=== PATIENT | male | born 1950 | race Caucasian/White ===

== ENCOUNTER 2017-11-17 10:25 | Outpatient (CLI) | payer OTHER ==
--- NOTE | 2017-11-17 12:56 | XRAY Report ---
3-VIEW LUMBAR SPINE: 11/17/2017 CLINICAL INDICATION: Back pain. FINDINGS: AP, lateral, cone-down views of the lumbar spine demonstrate no evidence of fracture or subluxation. The disk spaces are preserved. Mild facet arthropathy is present. The bowel gas pattern is normal. IMPRESSION: MILD FACET ARTHROPATHY. NO EVIDENCE OF FRACTURE. TD: 11/17/2017 12:55
== END 2017-11-17 10:26 | disposition home or self-care (01) ==
LOC: DI.S 10:25
PROVIDERS: ATTEND Nurse Practitioner Family
DX: M12.88 Other specific arthropathies, not elsewhere classified, other specified site (principal)
CPT/HCPCS: 72100

== ENCOUNTER 2021-06-03 19:45 | Emergency (ER) | payer MEDICARE, OTHER ==
[2021-06-03 19:54] VITALS: BP 163/76
--- NOTE | 2021-06-03 20:49 | ED Physician Documentation ---
PD HPI UPPER EXT INJURY - Stated complaint Stated Complaint: RT FINGER INJ - Chief complaint Chief Complaint: Ext Problem - History obtained from History obtained from: Patient - History of Present Illness Location: Right, Finger Type of injury: Blunt / blow, Crush Where injury occurred: Home Timing - onset: Enter time (15:00), Today Pain level now: 4 Worsened by: Moving, Palpating Associated symptoms: Swelling, Discolored Recently seen: Not recently seen - Additonal information Additional information: patient is left hand dominant. At approximately 3 PM today he was using a hammer to hang [place] lights when he struck right middle finger with the hammer. C/O pain and swelling limited to the tip of his right middle finger. Has taken ibuprofen with adequate analgesia Review of Systems Musculoskeletal: reports: Extremity pain, Extremity swelling Neurologic: denies: Focal weakness, Numbness PD PAST MEDICAL HISTORY - Past Medical History Past Medical History: Yes Cardiovascular: Hypertension, High cholesterol - Present Medications Home Medications: Ambulatory Orders Medication Instructions Recorded Confirmed Nortriptyline [Pamelor] 10 mg PO DAILY 06/03/21 06/03/21 Pravastatin [Pravachol] 10 mg PO DAILY 06/03/21 06/03/21 lisinopriL [Zestril] 5 mg PO DAILY 06/03/21 06/03/21 - Allergies Allergies/Adverse Reactions: Allergies Allergy/AdvReac Type Severity Reaction Status Date / Time hydromorphone [From Dilaudid] Allergy Anxiety Verified 06/03/21 19:50 prochlorperazine Allergy Itching Verified 06/03/21 19:50 [From Compazine] PD ED PE NORMAL - Vitals Vital signs reviewed: Yes - General General: Alert and oriented X 3, No acute distress, Well developed/nourished - Neuro Neuro: No motor deficit, No sensory deficit PD ED PE EXPANDED - Extremities Extremities: Tenderness, Swelling, Bruising, Other (swelling, echymosis, tenderness palmar surface of right third finger distal to DIP joint. no injury to nail, no subungual hematoma) JULIO UE/Hands Visual: 1 - bruising, swelling Results - Vitals Vitals: Vital Signs - 24 hr 06/03/21 19:52 Temperature 36.7 C Heart Rate 84 Respiratory 18 Rate Blood Pressure 163/76 H O2 Saturation 99 Oxygen O2 Source Room air - Rads (name of study) right middle finger xrays Radiology: Prelim report reviewed, See rad report PD MEDICAL DECISION MAKING - ED course Complexity details: reviewed results, re-evaluated patient, considered differential, d/w patient ED course: presents with pain and swelling of right middle finger after crush injury earlier tonight. Xrays do not demonstrate definite fracture, although significant DJD noted and could obscure fracture. Finger splint placed and resu lts d/w patient, instructed to follow up with his primary care provider for reevaluation within 1 week unless symptoms resolve prior to follow up. He declines pain medication, as he has had adequate relief with ibuprofen [employer]. Departure - Departure Disposition: 01 Home, Self Care Clinical Impression: Crushed finger Qualifiers: Encounter type: initial encounter Qualified Code(s): S67.10XA - Crushing injury of unspecified finger(s), initial encounter Condition: Good Instructions: ED Crush Injury Finger No Fx Follow-Up: PHIL NGUYEN MD [Primary Care Provider] - Nitesh Ayala MD [Provider Admit Priv/Credential] - Comments: Follow up with your primary care provider within 1 week. Keep the splint on until advised otherwise. There is no evidence of a fracture on your xray, but as we discussed, there are significant degenerative changes of the joints and this can sometimes obscure a broken bone. The safe and appropriate approach is to keep the splint on until advised otherwise and follow up with your doctor for a reevaluation and possibly repeat xrays. Discharge Date/Time: 06/03/21 21:21
--- NOTE | 2021-06-03 21:16 | XRAY Report ---
PROCEDURE: Finger(s) RT INDICATIONS: Trauma TECHNIQUE: AP hand, 2 views of the third finger(s) acquired. COMPARISON: None. FINDINGS: Bones: No definite fractures or dislocations. The phalangeal joint space narrowing and osteonecrosi s most pronounced in the DIP joints. No suspicious bony lesions. Soft tissues: No suspicious soft tissue calcifications. IMPRESSION: No definite fracture. Inserted follow-up radiographs in 10-14 days. 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 Reviewed by: Nitin Ferreira MD on 06/03/2021 9:14 PM PST Approved by: Nitin Ferreira MD on 06/03/2021 9:14 PM PST Station ID: [id number]
== END 2021-06-03 21:21 | disposition home or self-care (01) ==
LOC: ED 19:45
DX: S67.10XA Crushing injury of unspecified finger(s), initial encounter (principal); W22.8XXA Striking against or struck by other objects, initial encounter; Y93.89 Activity, other specified; Y92.009 Unspecified place in unspecified non-institutional (private) residence as the place of occurrence of the external cause; I10 Essential (primary) hypertension
CPT/HCPCS: 99282; 99283

== ENCOUNTER 2021-10-28 08:00 | Outpatient (CLI) | payer MEDICARE, OTHER ==
--- NOTE | 2021-10-28 21:23 | Ultrasound Report ---
PROCEDURE: Duplex Ext Veins Left INDICATIONS: PAIN IN LEFT LOWER LEG TECHNIQUE: Real-time imaging, as well as color and pulse Doppler interrogation, were performed of the lower extr emity deep veins from the inguinal ligament to the popliteal fossa. COMPARISON: None. FINDINGS: The deep veins are normally compressible, and free of intraluminal thrombus. Color and pu lse Doppler demonstrate normal phasic intraluminal flow. There is normal augmentation response to di stal compression maneuver. IMPRESSION: No left lower extremity DVT. Reviewed by: Nitin Ferreira MD on 10/28/2021 9:22 PM PDT Approved by: Nitin Ferreira MD on 10/28/2021 9:22 PM PDT Station ID: [id number]
== END 2021-10-28 23:59 | disposition home or self-care (01) ==
LOC: DI 08:00
PROVIDERS: ATTEND Physician Assistant Medical
DX: M79.662 Pain in left lower leg (principal)

== ENCOUNTER 2022-07-24 19:54 | Emergency (ER) | payer MEDICARE, OTHER ==
--- NOTE | 2022-07-24 20:01 | ED Physician Documentation ---
PD HPI CHEST PAIN - Stated complaint Stated Complaint: CHEST/BACK PX, HIGH BP - History obtained from History obtained from: Patient - History of Present Illness Timing - onset: How many days ago (2) Timing - onset during: Light activity (he was doing some yardwork and shoveling, and also was leaning into shovel against his chest at times. Did not feel abrupt pain at time, but noted dull achy pain left parasternal later in evening and has continued now for 2 days.) Timing - duration: Days (2) Timing - details: Gradual onset, Still present Quality: Aching, Dull, Pain Location: Left chest (left sternal border and laterally to pectoral area above nipple line.). No: Left shoulder/arm, Left neck Radiation: No: Neck, Back, Abdominal Improved by: Rest Worsened by: Inspiration, Movement, Palpation. No: Eating Associated symptoms: Palpitations (but has had palpitations chronically.). No: Shortness of air, Nausea, Feeling faint / dizzy, Cough Similar symptoms before: Has not had sx before Recently seen: Not recently seen Review of Systems Constitutional: denies: Fever, Chills Nose: denies: Rhinorrhea / runny nose, Congestion Throat: denies: Sore throat Cardiac: reports: Palpitations. denies: Pedal edema, Calf pain Respiratory: denies: Cough GI: denies: Abdominal Pain, Nausea, Vomiting, Diarrhea Skin: denies: Rash, Lesions Neurologic: denies: Generalized weakness, Near syncope PD PAST MEDICAL HISTORY - Past Medical History Cardiovascular: Hypertension, High cholesterol Respiratory: None Endocrine/Autoimmune: None - Present Medications Home Medications: Ambulatory Orders Medication Instructions Recorded Confirmed Nortriptyline [Pamelor] 10 mg PO DAILY 06/03/21 06/03/21 Pravastatin [Pravachol] 10 mg PO DAILY 06/03/21 06/03/21 lisinopriL [Zestril] 5 mg PO DAILY 06/03/21 06/03/21 - Allergies Allergies/Adverse Reactions: Allergies Allergy/AdvReac Type Severity Reaction Status Date / Time hydromorphone [From Dilaudid] Allergy Anxiety Verified 06/03/21 19:50 prochlorperazine Allergy Itching Verified 06/03/21 19:50 [From Compazine] PD ED PE NORMAL - Vitals Vital signs reviewed: Yes - General General: Alert and oriented X 3, No acute distress, Well developed/nourished - Neck Neck: Supple, no meningeal sign, No adenopathy - Cardiac Cardiac: RRR, No murmur, Other (focal chestwall tenderness left upper parasternal. No rash nor crepitance. ) - Respiratory Respiratory: Clear bilaterally - Abdomen Abdomen: Soft, Non tender - Derm Derm: Normal color, Warm and dry, No rash - Extremities Extremities: No edema, No calf tenderness / cord - Neuro Neuro: Alert and oriented X 3, No motor deficit, Normal speech Results - Vitals Vitals: Vital Signs - 24 hr 07/24/22 07/24/22 07/24/22 20:06 21:05 21:46 Temperature 36.8 C Heart Rate 74 74 68 Respiratory 18 17 19 Rate Blood Pressure 152/92 H 131/103 H 132/98 H O2 Saturation 100 96 96 Oxygen O2 Source Room air - EKG (time done) 20:07 Rate: Rate (enter#) (73) Rhythm: NSR [place]: Normal Intervals: Normal [place] QRS: Normal Ischemia: Normal ST segments. No: ST elevation c/w ischemia, ST depression - Labs Labs: Laboratory Tests 07/24/22 07/24/22 07/24/22 20:18 20:18 20:18 WBC 5.7 RBC 4.53 L Hgb 14.4 Hct 43.1 MCV 95.1 H MCH 31.8 H MCHC 33.4 RDW 13.1 Plt Count 222 MPV 9.7 Neut # (Auto) 3.4 Lymph # (Auto) 1.5 [place] # (Auto) 0.7 Eos # (Auto) 0.1 Baso # (Auto) 0.1 Absolute Nucleated RBC 0.00 Nucleated RBC % 0.0 Sodium 136 Potassium 4.1 Chloride 103 Carbon Dioxide 25 Anion Gap 8.0 BUN 18 Creatinine 0.8 Estimated GFR (MDRD) 96 Glucose 95 Calcium 8.9 Total Bilirubin 0.5 AST 28 ALT 19 Alkaline Phosphatase 50 Troponin I High Sens 7.0 B-Natriuretic Peptide Total Protein 7.1 Albumin 4.1 Globulin 3.0 Albumin/Globulin Ratio 1.4 Lipase 35 07/24/22 20:18 WBC RBC Hgb Hct MCV MCH MCHC RDW Plt Count MPV Neut # (Auto) Lymph # (Auto) [place] # (Auto) Eos # (Auto) Baso # (Auto) Absolute Nucleated RBC Nucleated RBC % Sodium Potassium Chloride Carbon Dioxide Anion Gap BUN Creatinine Estimated GFR (MDRD) Glucose Calcium Total Bilirubin AST ALT Alkaline Phosphatase Troponin I High Sens B-Natriuretic Peptide 31 Total Protein Albumin Globulin Albumin/Globulin Ratio Lipase - Rads (name of study) chest xray Radiology: Prelim report reviewed, EMP read indepedently (no acute cardiopulmonary process. ), See rad report PD Medical Decision Making - ED course Complexity details: reviewed results, re-evaluated patient, considered differential (His symptoms sound more musculoskeletal but that has been shown to not be accurate enough. We will do EKG and chest x-ray and troponin to ensure no signs of more significant process), d/w patient Reviewed Lab Results: EKG shows a normal sinus rhythm without any ischemic changes. This is interpreted by me. Chest x-ray is also interpreted by me as well as the radiologist. I do not see any acute cardiopulmonary process and the radiology report is negative as well. Lab tests of chemistry panel, blood count, troponin and BNP are all in the normal range. This would exclude any acute myocardial muscle damage or any signs of acute heart failure based on the BNP and x-ray. Since there is no sign of more significant cause based on the testing and he does have chest wall tenderness and a mechanism to suggest a costochondral inflammation at the parasternal area, I believe he is safe for discharge and can be treated with NSAIDs and Tylenol. He declined any opioid type medicines. Departure - Departure Disposition: 01 Home, Self Care Clinical Impression: Chest pain Qualifiers: Chest pain type: other chest pain Qualified Code(s): R07.89 - Other chest pain Condition: Stable Record reviewed to determine appropriate education?: Yes Instructions: ED Strain Chest Wall Follow-Up: PHIL NGUYEN MD [Primary Care Provider] - Comments: Your EKG is normal without any signs of strain or injury of the heart. Your chest x-ray is also normal without any signs of pneumonia, collapsed lung, fluid in the lungs or masses. Your blood tests are normal, in particular ones called troponin and BNP, which did note no signs of heart muscle injury nor heart failure. Your pancreas and liver markers on blood tests are also normal. At this point it seems like a inflammation and injury of the chest wall and the cartilage in that area. I would suggest ibuprofen or naproxen 2 [id number] tablets 3 times daily with food for the next several days to week. Add Tylenol every 4-6 hours if needed. I would anticipate improvement over the next 3 to 5 days and resolution by about a week. Recheck if not better in that timeframe or if other symptoms develop. Discharge Date/Time: 07/24/22 21:47
[2022-07-24] MEDS ORDERED: KETOROLAC 15 MG/ML VIAL IVP STA (20:16)
[2022-07-24] MEDS ORDERED: ACETAMINOPHEN 325 MG TABLET PO STA (20:16)
[2022-07-24 20:24] LABS: BASOPHILS # (AUTO) 0.1 10^3/uL (0.0-0.1); BASOPHILS % (AUTO) 1.1 %; EOSINOPHILS # (AUTO) 0.1 10^3/uL (0.0-0.7); EOSINOPHILS % (AUTO) 2.5 %; HCT - HEMATOCRIT 43.1 % (42.0-52.0); HGB - HEMOGLOBIN 14.4 g/dL (14.0-18.0); LYMPHOCYTES # (AUTO) 1.5 10^3/uL (1.5-3.5); LYMPHOCYTES % (AUTO) 25.7 %; MEAN CORPUSCULAR HEMOGLOBIN 31.8 pg (27.0-31.0); MEAN CORPUSCULAR HGB CONC 33.4 g/dL (32.0-36.0); MEAN CORPUSCULAR VOLUME 95.1 fL (80.0-94.0); MEAN PLATELET VOLUME 9.7 fL (7.4-11.4); MONOCYTES # (AUTO) 0.7 10^3/uL (0.0-1.0); MONOCYTES % (AUTO) 11.6 %; NEUTROPHILS # (AUTO) 3.4 10^3/uL (1.5-6.6); NEUTROPHILS % (AUTO) 58.9 %; PLT - PLATELET COUNT 222 10^3/uL (130-450); RED BLOOD COUNT 4.53 10^6/uL (4.70-6.10); RED CELL DISTRIBUTION WIDTH 13.1 % (12.0-15.0); WHITE BLOOD COUNT 5.7 x10^3/uL (4.8-10.8)
[2022-07-24 20:39] LABS: ALBUMIN 4.1 g/dL (3.2-5.5); ALBUMIN/GLOBULIN RATIO 1.4 (1.0-2.2); BILIRUBIN,TOTAL 0.5 mg/dL (0.2-1.0); CALCIUM 8.9 mg/dL (8.5-10.3); CREATININE 0.8 mg/dL (0.6-1.2); POTASSIUM 4.1 mmol/L (3.5-5.0); TOTAL PROTEIN 7.1 g/dL (6.7-8.2)
--- NOTE | 2022-07-24 20:40 | XRAY Report ---
PROCEDURE: Chest 1 View X-Ray INDICATIONS: Chest Pain TECHNIQUE: One view of the chest was acquired. COMPARISON: None. FINDINGS: Surgical changes and devices: None. Lungs and pleura: No pleural effusions or pneumothorax. Lungs are clear. Mediastinum: Mediastinal contours appear normal. Heart size is normal. Bones and chest wall: No suspicious bony lesions. Overlying soft tissues appear unremarkable. IMPRESSION: 1. No acute cardiopulmonary disease. Reviewed by: Jay Jones MD on 07/24/2022 8:38 PM [facility] Approved by: Jay Jones MD on 07/24/2022 8:38 PM [facility] Station ID: [id number]
[2022-07-24 21:47] VITALS: BP 132/98
== END 2022-07-24 21:47 | disposition home or self-care (01) ==
LOC: ED 19:54
DX: R07.89 Other chest pain (principal)
CPT/HCPCS: 36415; 71045; 80053; 83690; 83880; 84484; 85025; 93005; 96374; 99283; 99284; A9270

== ENCOUNTER 2022-09-15 16:25 | Emergency (ER) | payer MEDICARE, OTHER ==
[2022-09-15 16:54] VITALS: BP 135/83
--- NOTE | 2022-09-15 17:21 | ED Physician Documentation ---
History of Present Illness - Stated complaint Stated Complaint: COUGH,CHEST TIGHTNESS - Chief complaint Chief Complaint: Resp - History obtained from History obtained from: Patient - Additonal information Additional information: He has been sick for about 5 days. It started with mostly sinus drainage but then moved into his chest over the last couple of days. His partner is sick with a similar illness. PD PAST MEDICAL HISTORY - Past Medical History Cardiovascular: Hypertension, High cholesterol Respiratory: None Endocrine/Autoimmune: None - Present Medications Home Medications: Ambulatory Orders Medication Instructions Recorded Confirmed Nortriptyline [Pamelor] 10 mg PO DAILY 06/03/21 06/03/21 Pravastatin [Pravachol] 10 mg PO DAILY 06/03/21 06/03/21 lisinopriL [Zestril] 5 mg PO DAILY 06/03/21 06/03/21 Amox/Clav 875/125 [Augmentin] 1 each PO Q12H #20 tablet 09/15/22 - Allergies Allergies/Adverse Reactions: Allergies Allergy/AdvReac Type Severity Reaction Status Date / Time hydromorphone [From Dilaudid] Allergy Anxiety Verified 09/15/22 16:54 prochlorperazine Allergy Itching Verified 09/15/22 16:54 [From Compazine] PD ED PE NORMAL - Vitals Vital signs reviewed: Yes - General General: Alert and oriented X 3, No acute distress - HEENT HEENT: Other (Tender over both maxillary sinuses) - Cardiac Cardiac: RRR, No murmur - Respiratory Respiratory: No respiratory distress, Clear bilaterally - Neuro Neuro: Alert and oriented X 3, Normal speech Results - Vitals Vitals: Vital Signs - 24 hr 09/15/22 16:50 Temperature 36.9 C Heart Rate 80 Respiratory 16 Rate Blood Pressure 135/83 H O2 Saturation 97 Oxygen O2 Source Room air Departure - Departure Disposition: Home, Self Care Clinical Impression: Sinusitis Qualifiers: Sinusitis location: maxillary Chronicity: acute Recurrence: not specified as recurrent Qualified Code(s): J01.00 - Acute maxillary sinusitis, unspecified Condition: Good Record reviewed to determine appropriate education?: Yes Instructions: ED Sinusitis Abx Tx Prescriptions: Amox/Clav 875/125 [Augmentin] 1 each PO Q12H #20 tablet Comments: Call your doctor to arrange a follow-up appointment, make the next available appointment. In the interim, return anytime if worse or if new symptoms develop.
--- NOTE | 2022-09-15 17:27 | XRAY Report ---
PROCEDURE: Chest 2 View X-Ray INDICATIONS: cough TECHNIQUE: 2 views of the chest were acquired. COMPARISON: Chest x-ray, one view, 07/24/2022. FINDINGS: Surgical changes and devices: None. Lungs and pleura: No pleural effusions or pneumothorax. Lungs are clear. Mediastinum: Mediastinal contours are normal. Heart size is normal. Bones and chest wall: No suspicious bony abnormalities. Soft tissues appear unremarkable. IMPRESSION: No acute cardiopulmonary disease. Reviewed by: Tatiana Castanon MD on 09/15/2022 5:25 PM PST Approved by: Tatiana Castanon MD on 09/15/2022 5:25 PM PST Station ID: [id number]
[2022-09-15] MEDS ORDERED: AMOX/CLAV 875 MG/125 MG TABLET PO STA (17:30)
== END 2022-09-15 17:49 | disposition home or self-care (01) ==
LOC: ED 16:25
DX: J01.00 Acute maxillary sinusitis, unspecified (principal); I10 Essential (primary) hypertension; E78.00 Pure hypercholesterolemia, unspecified; Z79.899 Other long term (current) drug therapy
CPT/HCPCS: 71046; 99283; A9270

== ENCOUNTER 2023-02-04 08:00 | Outpatient (CLI) | payer MEDICARE, OTHER ==
--- NOTE | 2023-02-05 13:14 | XRAY Report ---
PROCEDURE: Ribs w/PA Chest RT INDICATIONS: ACUTE CHEST PAIN TECHNIQUE: 3 views of the right ribs were acquired, along with a single view chest. COMPARISON: Chest x-ray 09/15/2022 FINDINGS: Surgical changes and devices: None. Bones and chest wall: No fractures or dislocations. No suspicious bony lesions. Overlying soft tis sues appear unremarkable. Lungs and pleura: No pleural effusions or pneumothorax. Lungs appear clear. Mediastinum: Mediastinal contours appear normal. Heart size is normal. IMPRESSION: No visualized acute fracture or dislocation. However, occult injury cannot be excluded. Recommend erwin rt interval imaging follow-up in 7-10 days as clinically indicated for additional evaluation. Reviewed by: Shania Carreon MD on 02/05/2023 1:12 PM PDT Approved by: Shania Carreon MD on 02/05/2023 1:12 PM PDT Station ID: [id number]
== END 2023-02-04 23:59 | disposition home or self-care (01) ==
LOC: DI.S 08:00
PROVIDERS: ATTEND Physician Assistant Medical
DX: R07.89 Other chest pain (principal)

== ENCOUNTER 2023-05-05 13:29 | Outpatient (CLI) | payer MEDICARE, OTHER | END 2023-05-05 13:30 | disposition home or self-care (01) | LOC: LAB.S 13:29 | PROVIDERS: ATTEND Family Medicine | DX: C61 Malignant neoplasm of prostate (principal) | CPT/HCPCS: 36415; 84153 ==

== ENCOUNTER 2023-09-15 08:00 | Outpatient (CLI) | payer MEDICARE, OTHER ==
--- NOTE | 2023-09-15 21:56 | XRAY Report ---
PROCEDURE: Hand 3 View LT INDICATIONS: LEFT HAND CYST TECHNIQUE: 3 view(s) of the hand(s) acquired. COMPARISON: None FINDINGS: Bones: No fractures or dislocations. No suspicious bony lesions. Joint space narrowing with margina l osteophytes in particular erosions noted predominantly involving the second through fifth distal in terphalangeal joints. BB Soft tissues: No suspicious soft tissue calcifications. 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
== END 2023-09-15 23:59 | disposition home or self-care (01) ==
LOC: DI.WOS 08:00
PROVIDERS: ATTEND Physician Assistant Surgical
DX: R22.32 Localized swelling, mass and lump, left upper limb (principal)